=== PATIENT | female | born 1985 | race Caucasian/White ===

== ENCOUNTER 2017-02-11 01:13 | Emergency (ER) | payer SELFPAY ==
--- NOTE | 2017-02-11 07:59 | RAD ---
RIGHT HAND 3 VIEWS: Date: 02/11/17 HISTORY: 32-year-old female with history of injury to her arm and hand 2 weeks ago with splint being placed. Patient has not received follow-up. FINDINGS: There is a displaced and minimally volarly angulated oblique fracture of the fourth metacarpal with some foreshortening. Splint material overlies the ulnar side of the hand and wrist. IMPRESSION: Minimally displaced oblique fracture through the fourth metatarsal with some foreshortening and mini mal volar angulation, stabilized with splint material. No prior radiographs available for comparison . POS: [facility]
== END 2017-02-11 03:37 | disposition left against medical advice (07) ==
LOC: ERS 01:13
DX: M79.641 Pain in right hand (principal); F31.9 Bipolar disorder, unspecified; F17.210 Nicotine dependence, cigarettes, uncomplicated

== ENCOUNTER 2017-03-10 11:01 | Emergency (ER) | payer SELFPAY ==
--- NOTE | 2017-03-10 12:47 | RAD ---
CHEST 1 VIEW: HISTORY: Cough and congestion. FINDINGS: The cardiac silhouette and pulmonary vasculature are unremarkable. Mediastinum is midline. There is no confluent airspace consolidation or evidence of pneumothorax. Metallic clips overlie the gallbla dder fossa. IMPRESSION: No active cardiopulmonary abnormalities are demonstrated. POS: [facility]
[2017-03-10] MEDS ORDERED: Dexamethasone 10 MG/ML VIAL ONE (14:29)
== END 2017-03-10 14:36 | disposition home or self-care (01) ==
LOC: ERS 11:01
DX: J06.9 Acute upper respiratory infection, unspecified (principal); S62.91XD Unspecified fracture of right hand, subsequent encounter for fracture with routine healing; D64.9 Anemia, unspecified; F31.9 Bipolar disorder, unspecified; F17.210 Nicotine dependence, cigarettes, uncomplicated
CPT/HCPCS: 71010; J1100

== ENCOUNTER 2017-05-08 12:18 | Emergency (ER) | payer SELFPAY ==
[2017-05-08 13:07] LABS: #Basophils 0.1 thou/uL (0.0-0.2); #Eosinphils 0.2 thou/uL (0.0-0.7); #Lymphocytes 2.7 thou/uL (1.20-3.40); #Monocytes 0.7 thou/uL (0.11-0.59); #Neutrophils 3.9 thou/uL (1.40-6.50); %Eosinophils 2.2 % (0.0-10.0); %Monocytes 9.8 % (0.0-10.0); %Neutrophils 51.1 % (42.0-75.0); Hemoglobin 13.6 g/dL (12.0-16.0); Mean Corpuscular HGB CONC 33.3 g/dL (32.0-36.0); Mean Corpuscular Hemoglobin 29.2 pg (27.0-31.0); Mean Corpuscular Volume 87.6 fl (81.0-99.0); Platelet Count 292 thou/uL (130-400); RBC Distribution Width 12.8 % (11.5-14.5); Red Blood Cell (RBC) Count 4.67 mill/uL (4.20-5.40); White Blood Cell (WBC) Count 7.5 thou/uL (4.8-10.8)
[2017-05-08] MEDS ORDERED: Ibuprofen 200 MG TAB ONE (13:25)
[2017-05-08 13:33] LABS: ALT (SGPT) 13 U/L (8-55); AST (SGOT) 17 U/L (5-34); Acetaminophen Less than 6.0 mcg/mL (10.0-30.0); Albumin 3.9 g/dL (3.5-5.0); Alcohol Less than 10 mg/dL (Less than 10); Alkaline Phosphatase 52 U/L (40-150); Anion Gap 9 mmol/L (10-20); BUN (Urea Nitrogen) 20 mg/dL (7.0-18.7); Bilirubin, Total 0.3 mg/dL (0.2-1.2); CK (CPK) 71 U/L (29-168); Calc. Creatinine Clearance 0 mL/min (70-130); Calcium 9.5 mg/dL (7.8-10.44); Carbon Dioxide 28 mmol/L (22-29); Chloride 106 mmol/L (98-107); Estimated GFR-MDRD 88; Globulin 2.7 g/dL (2.4-3.5); Glucose 87 mg/dL (70-105); Potassium 4.1 mmol/L (3.5-5.1); Protein, Total 6.6 g/dL (6.0-8.3); Salicylate 15.3 mg/dL (15.0-30.0); Sodium 139 mmol/L (136-145)
[2017-05-08] MEDS ORDERED: Ketorolac Tromethamine 30 MG/ML VIAL ONE (13:55)
[2017-05-08 15:15] LABS: Bilirubin Negative (Negative); Blood, Urine Negative (Negative); Clarity CLEAR (Clear); Glucose, Urine (Dipstick) Negative (Negative); Leukocyte Negative (Negative); Nitrite Negative (Negative); Protein, Urine (Dipstick) Negative (Neg-Trace); Specific Gravity, Urine 1.018 (1.002-1.036); Urobilinogen 0.2 mg/dL (0.2-1.0)
[2017-05-08 15:20] LABS: Pregnancy Test - Urine (BHCG) Negative (Negative); Pregu Control Background? CLEAR/WHITE (CLR/WHITE); Pregu Control Bar Appear? YES (CONTROL BAR); Specific Gravity 1.018 (1.002-1.036)
[2017-05-08 15:26] LABS: Medtox Reader # READER 1
[2017-05-08 15:27] LABS: Amphetamine Detected (NotDetected); Barbiturates Screen Not Detected (NotDetected); Benzodiazepine Screen Not Detected (NotDetected); Cocaine Metabolite Screen Not Detected (NotDetected); Medtox Control Line Valid? VALID (VALID); Methadone Not Detected (NotDetected); Methamphetamine Not Detected (NotDetected); Opiate Screen Not Detected (NotDetected); Oxycodone Screen Not Detected (NotDetected); Phencyclidine (PCP) Detected (NotDetected); THC/Cannabinoid Screen Detected (NotDetected); Tricyclic Screen Not Detected (NotDetected)
[2017-05-08] MEDS ORDERED: cloNIDine 0.1 MG TAB ONE (15:37)
--- NOTE | 2017-05-08 16:04 | RAD ---
RIGHT HAND FOUR VIEWS: 05/08/17 HISTORY: Right hand pain. Injury COMPARISON: 02/11/17. FINDINGS: Fracture plane of the oblique fracture of the fourth metacarpal remains lucent with 0.5 cm gap and on e quarter shaft width posterior displacement. Some periosteal reaction is present, but no complete os seous bridging is reliably demonstrated. Mild apex posterior angulation remains. No new fractures are evident. IMPRESSION: Nonhealing fracture right fourth metacarpal. POS: [facility]
[2017-05-08] MEDS ORDERED: Nicotine 14 MG PATCH TOP SCH (16:30)
[2017-05-09] MEDS ORDERED: Ibuprofen 200 MG TAB ONE (05:00)
[2017-05-09] MEDS ORDERED: Bacitracin Zinc 1 Packet ONE (08:35)
[2017-05-09] MEDS ORDERED: Acetaminophen 325 MG TAB ONE (09:37)
[2017-05-09] MEDS ORDERED: Nicotine 14 MG PATCH TOP SCH (09:45)
[2017-05-09] MEDS ORDERED: Haloperidol Lactate 5 MG/ML VIAL ONE (15:23)
== END 2017-05-09 16:32 | disposition psychiatric hospital, planned readmission (93) ==
LOC: ERS 12:18
DX: F19.10 Other psychoactive substance abuse, uncomplicated (principal); R45.851 Suicidal ideations; D64.9 Anemia, unspecified; F31.9 Bipolar disorder, unspecified; F41.9 Anxiety disorder, unspecified
CPT/HCPCS: 36415; 80053; 80306; 80307; 81003; 81025; 82550; 85025; 96372; 96374; J1630; J1885

== ENCOUNTER 2017-07-20 19:02 | Emergency (ER) | payer SELFPAY ==
[2017-07-20 19:34] LABS: #Eosinphils 0.2 thou/uL (0.0-0.7); #Lymphocytes 1.9 thou/uL (1.20-3.40); #Neutrophils 5.1 thou/uL (1.40-6.50); %Basophils 0.4 % (0.0-1.0); %Eosinophils 2.1 % (0.0-10.0); %Lymphocytes 23.4 % (21.0-51.0); %Monocytes 12.3 % (0.0-10.0); %Neutrophils 61.8 % (42.0-75.0); Hemoglobin 13.6 g/dL (12.0-16.0); Mean Corpuscular HGB CONC 33.7 g/dL (32.0-36.0); Mean Corpuscular Hemoglobin 29.1 pg (27.0-31.0); Mean Corpuscular Volume 86.4 fl (81.0-99.0); Mean Platelet Volume 6.9 fL (7.4-10.4); Platelet Count 332 thou/uL (130-400); RBC Distribution Width 12.7 % (11.5-14.5); Red Blood Cell (RBC) Count 4.66 mill/uL (4.20-5.40); White Blood Cell (WBC) Count 8.3 thou/uL (4.8-10.8)
[2017-07-20 19:59] LABS: CKMB 2.7 ng/mL (0-6.6); Troponin I Less than 0.010 ng/mL (< 0.028)
--- NOTE | 2017-07-20 20:32 | RAD ---
CHEST ONE VIEW: HISTORY: Chest pain. COMPARISON: 03/10/2017 FINDINGS: The cardiac silhouette is magnified by projection. The pulmonary vasculature is unremarkable. The m ediastinum is midline. There is no confluent air space consolidation or evidence of pneumothorax. C ardiac monitor leads overly the chest. IMPRESSION: No acute cardiopulmonary abnormalities are demonstrated. POS: [facility]
[2017-07-20] MEDS ORDERED: hydrOXYzine 25 MG TAB ONE (20:33)
--- NOTE | 2017-08-29 13:59 | EKG ---
Test Reason : Blood Pressure : / mmHG Vent. Rate : 068 BPM Atrial Rate : 068 BPM P-R Int : 146 ms QRS Dur : 086 ms QT Int : 396 ms P-R-T Axes : 039 028 043 degrees QTc Int : 421 ms Normal sinus rhythm Normal ECG Confirmed by TY PETERSON, CATINA ([id number]), food expeditor ADRIA NO ([id number]) on 08/29/2017 1:59:07 PM Referred By: TY Confirmed By:CATINA CRAWFORD MD
== END 2017-07-20 20:38 | disposition home or self-care (01) ==
LOC: ERS 19:02
DX: F41.9 Anxiety disorder, unspecified; L40.9 Psoriasis, unspecified; F31.9 Bipolar disorder, unspecified; F17.210 Nicotine dependence, cigarettes, uncomplicated; D64.9 Anemia, unspecified
CPT/HCPCS: 36415; 71045; 82553; 84484; 85025; 93005

== ENCOUNTER 2017-08-12 10:06 | Emergency (ER) | payer SELFPAY ==
[2017-08-12] MEDS ORDERED: Ondansetron ODT 8 MG TAB ONE (10:38)
[2017-08-12 11:47] LABS: Bilirubin Negative (Negative); Blood, Urine Moderate (Negative); Clarity TURBID (Clear); Glucose, Urine (Dipstick) Negative (Negative); Leukocyte Large (Negative); Nitrite Positive (Negative); Protein, Urine (Dipstick) 100 mg/dL (Neg-Trace); Specific Gravity, Urine 1.014 (1.002-1.036); pH, Urine 6.5 (5.0-9.0)
[2017-08-12 11:54] LABS: Pregnancy Test - Urine (BHCG) Negative (Negative); Pregu Control Background? CLEAR/WHITE (CLR/WHITE); Pregu Control Bar Appear? YES (CONTROL BAR); Specific Gravity 1.014 (1.002-1.036)
[2017-08-12 11:59] LABS: Bacteria/HPF 4+ HPF (None Seen); Hyaline Casts/LPF 0-3 HYALINE CAST LPF (0-3 Hyaline); Pathc Cast-AUWi Flag 0.59 (0-2.49); Squamous Epithelial None Seen HPF (0-3)
[2017-08-12 12:00] LABS: Yeast-AUWi Flag 74.7 (0-25.0)
[2017-08-12] MEDS ORDERED: Ketorolac Tromethamine 60 MG/2 ML VIAL ONE (12:04)
[2017-08-12 12:15] LABS: Yeast-All Forms None Seen HPF (None Seen)
[2017-08-12] MEDS ORDERED: cefTRIAXone\\ROCEPHIN 500 MG VIAL ONE (13:12)
[2017-08-12] MEDS ORDERED: Lidocaine 1% PF 5 ML VIAL ONE (13:12)
== END 2017-08-12 13:43 | disposition home or self-care (01) ==
LOC: ERS 10:06
DX: N12 Tubulo-interstitial nephritis, not specified as acute or chronic (principal); F31.9 Bipolar disorder, unspecified; D64.9 Anemia, unspecified; F41.9 Anxiety disorder, unspecified; F17.210 Nicotine dependence, cigarettes, uncomplicated
CPT/HCPCS: 81003; 81015; 81025; 96372; J0696; J1885; J2001

== ENCOUNTER 2018-01-04 12:08 | Emergency (ER) | payer MEDICARE, MEDICAID ==
--- NOTE | 2018-01-04 14:13 | RAD ---
FOUR VIEWS LEFT ELBOW: COMPARISON: None. HISTORY: Left elbow pain. FINDINGS: Four views of the left elbow show no evidence of acute fracture or dislocation. No elbow effusion is seen. No degenerative changes are seen. IMPRESSION: No evidence of acute osseous abnormality. POS: [facility]
[2018-01-04] MEDS ORDERED: Acetaminophen 500 MG TAB ONE (14:37)
== END 2018-01-04 14:40 | disposition home or self-care (01) ==
LOC: ERS 12:08
DX: S56.912A Strain of unspecified muscles, fascia and tendons at forearm level, left arm, initial encounter (principal); Z71.6 Tobacco abuse counseling; D64.9 Anemia, unspecified; F31.9 Bipolar disorder, unspecified; F41.9 Anxiety disorder, unspecified; F17.210 Nicotine dependence, cigarettes, uncomplicated; X50.0XXA Overexertion from strenuous movement or load, initial encounter
CPT/HCPCS: 99406

== ENCOUNTER 2019-12-07 12:41 | Emergency (ER) | payer MEDICAID, OTHER ==
[2019-12-07] MEDS ORDERED: Acetaminophen 500 MG TAB ONE (13:13)
[2019-12-07 13:25] LABS: #Eosinphils 0.1 thou/uL (0.0-0.7); #Lymphocytes 1.6 thou/uL (1.20-3.40); #Monocytes 0.7 thou/uL (0.11-0.59); #Neutrophils 4.3 thou/uL (1.40-6.50); %Basophils 0.7 % (0.0-1.0); %Lymphocytes 23.4 % (21.0-51.0); %Monocytes 9.9 % (0.0-10.0); Hemoglobin 13.4 g/dL (12.0-16.0); Mean Corpuscular HGB CONC 32.6 g/dL (32.0-36.0); Mean Corpuscular Hemoglobin 27.9 pg (27.0-31.0); Mean Corpuscular Volume 85.5 fL (78.0-98.0); Mean Platelet Volume 8.6 fL (7.4-10.4); Platelet Count 255 thou/uL (130-400); RBC Distribution Width 12.8 % (11.5-14.5); Red Blood Cell (RBC) Count 4.81 mill/uL (4.20-5.40); White Blood Cell (WBC) Count 6.6 thou/uL (4.8-10.8)
[2019-12-07 13:47] LABS: ALT (SGPT) 11 U/L (8-55); AST (SGOT) 14 U/L (5-34); Albumin 3.9 g/dL (3.5-5.0); Alkaline Phosphatase 54 U/L (40-110); Anion Gap 12 mmol/L (10-20); BUN (Urea Nitrogen) 9 mg/dL (7.0-18.7); Bilirubin, Total 0.7 mg/dL (0.2-1.2); Calc. Creatinine Clearance 0 mL/min (70-130); Calcium 8.5 mg/dL (7.8-10.44); Carbon Dioxide 23 mmol/L (22-29); Chloride 105 mmol/L (98-107); Estimated GFR-MDRD 85; Globulin 2.4 g/dL (2.4-3.5); Glucose 87 mg/dL (70-105); Lipase 18 U/L (8-78); Potassium 3.5 mmol/L (3.5-5.1); Protein, Total 6.3 g/dL (6.0-8.3); Sodium 136 mmol/L (136-145)
--- NOTE | 2019-12-07 13:56 | RAD ---
XR Chest 1 View Portable HISTORY: Chest pain COMPARISON: 12/01/2017 FINDINGS: The heart size is normal. The lungs are well expanded without focal areas of consolidation, pneumothorax or pleural effusions. IMPRESSION: No radiographic evidence of acute cardiopulmonary process.
[2019-12-07 14:17] LABS: Bacteria/HPF None Seen HPF (None Seen); Bilirubin Negative (Negative); Blood, Urine 2+ (Negative); Clarity Clear (Clear); Glucose, Urine (Dipstick) Normal (Negative); Ketone, Urine 20 mg/dL (Negative); Leukocyte Negative Leu/uL (Negative); Mucous/LPF 1+ LPF (<2+); Nitrite Negative (Negative); Protein, Urine (Dipstick) 20 mg/dL (Neg-Trace); Specific Gravity, Urine 1.026 (1.002-1.036); WBC/HPF 0-3 HPF (0-3)
[2019-12-07 14:21] LABS: Pregnancy Test - Urine (BHCG) Negative (Negative); Pregu Control Background? CLEAR/WHITE (CLR/WHITE); Pregu Control Bar Appear? YES (CONTROL BAR); Specific Gravity 1.026 (1.002-1.036)
[2019-12-08 12:29] LABS: SARS-CoV-2 MS2 Positive; SARS-CoV-2 N Gene Negative; SARS-CoV-2 S Gene Negative; SARS-CoV-2 by NAA Not Detected (NotDetected); SARS-CoV-2 orf1ab Negative
== END 2019-12-07 15:05 | disposition home or self-care (01) ==
LOC: ERS 12:41
DX: R11.2 Nausea with vomiting, unspecified (principal); R42 Dizziness and giddiness; M54.5 Low back pain; M79.10 Myalgia, unspecified site; R53.1 Weakness; R51 Headache; R07.9 Chest pain, unspecified; I10 Essential (primary) hypertension; D64.9 Anemia, unspecified; F41.9 Anxiety disorder, unspecified; F31.9 Bipolar disorder, unspecified; F17.210 Nicotine dependence, cigarettes, uncomplicated; Z20.828 Contact with and (suspected) exposure to other viral communicable diseases
CPT/HCPCS: 36415; 71045; 80053; 81003; 81015; 81025; 83690; 84484; 85025; 87635; 93005; U0003

== ENCOUNTER 2020-01-20 22:43 | Emergency (ER) | payer MEDICAID, SELFPAY ==
[2020-01-20] MEDS ORDERED: predniSONE 20 MG TAB ONE (23:50)
== END 2020-01-20 23:55 | disposition home or self-care (01) ==
LOC: ERS 22:43
DX: J44.1 Chronic obstructive pulmonary disease with (acute) exacerbation (principal); J04.0 Acute laryngitis; F31.9 Bipolar disorder, unspecified; F17.210 Nicotine dependence, cigarettes, uncomplicated; Z85.41 Personal history of malignant neoplasm of cervix uteri
CPT/HCPCS: 99284; J7512

== ENCOUNTER 2020-04-12 19:44 | Emergency (ER) | payer SELFPAY ==
[2020-04-12] MEDS ORDERED: PROVENTIL INHALER 6.7 G (200 INHALATIONS) ONE (21:53)
[2020-04-12] MEDS ORDERED: Albuterol 200 PUFF (6.7GM INHALER) ONE (21:57)
--- NOTE | 2020-04-12 22:44 | RAD ---
PORTABLE CHEST: 04/12/20 PROVIDED CLINICAL HISTORY: Cough. FINDINGS: Comparison 12/07/19. The cardiac and mediastinal silhouette is unchanged in appearance. No focal consolidation, pleural fl uid or pneumothorax apparent. IMPRESSION: No evidence for an acute cardiopulmonary process. POS: [facility]
[2020-04-13 03:15] LABS: SARS-CoV-2 MS2 Positive; SARS-CoV-2 N Gene Negative; SARS-CoV-2 S Gene Negative; SARS-CoV-2 by NAA Not Detected (NotDetected); SARS-CoV-2 orf1ab Negative
== END 2020-04-12 22:02 | disposition home or self-care (01) ==
LOC: ERS 19:44
DX: R05 Cough (principal); J44.9 Chronic obstructive pulmonary disease, unspecified; F17.210 Nicotine dependence, cigarettes, uncomplicated; Z20.828 Contact with and (suspected) exposure to other viral communicable diseases
CPT/HCPCS: 71045; 87635; U0003

== ENCOUNTER 2020-07-02 03:50 | Emergency (ER) | payer OTHER, SELFPAY | END 2020-07-02 05:15 | disposition home or self-care (01) | LOC: ERS 03:50 | DX: J45.901 Unspecified asthma with (acute) exacerbation (principal); F17.210 Nicotine dependence, cigarettes, uncomplicated | CPT/HCPCS: 71045 ==

== ENCOUNTER 2021-09-10 20:02 | Emergency (ER) | payer SELFPAY ==
[2021-09-10] MEDS ORDERED: predniSONE 20 MG TAB ONE (20:52)
[2021-09-10 21:14] LABS: #Lymphocytes 0.9 thou/uL (1.20-3.40); #Monocytes 0.5 thou/uL (0.11-0.59); %Eosinophils 0.5 % (0.0-10.0); %Lymphocytes 26.1 % (21.0-51.0); %Monocytes 13.3 % (0.0-10.0); %Neutrophils 59.1 % (42.0-75.0); Hemoglobin 12.6 g/dL (12.0-16.0); Mean Corpuscular HGB CONC 32.9 g/dL (32.0-36.0); Mean Corpuscular Hemoglobin 28.2 pg (27.0-31.0); Mean Corpuscular Volume 85.9 fL (78.0-98.0); Mean Platelet Volume 8.4 fL (7.4-10.4); Platelet Count 180 thou/uL (130-400); RBC Distribution Width 14.7 % (11.5-14.5); Red Blood Cell (RBC) Count 4.48 mill/uL (4.20-5.40); White Blood Cell (WBC) Count 3.4 thou/uL (4.8-10.8)
[2021-09-10 21:38] LABS: ALT (SGPT) 11 U/L (8-55); AST (SGOT) 17 U/L (5-34); Albumin 3.7 g/dL (3.5-5.0); Alkaline Phosphatase 49 U/L (40-110); Anion Gap 12 mmol/L (10-20); BUN (Urea Nitrogen) 6 mg/dL (7.0-18.7); Bilirubin, Total 0.2 mg/dL (0.2-1.2); Calc. Creatinine Clearance 0 mL/min (70-130); Calcium 8.4 mg/dL (7.8-10.44); Carbon Dioxide 22 mmol/L (22-29); Chloride 106 mmol/L (98-107); Globulin 2.7 g/dL (2.4-3.5); Glucose 79 mg/dL (70-105); Potassium 3.5 mmol/L (3.5-5.1); Protein, Total 6.4 g/dL (6.0-8.3); Sodium 136 mmol/L (136-145)
== END 2021-09-10 22:06 | disposition home or self-care (01) ==
LOC: ERS 20:02
DX: J44.1 Chronic obstructive pulmonary disease with (acute) exacerbation (principal); F17.210 Nicotine dependence, cigarettes, uncomplicated
CPT/HCPCS: 36415; 71045; 80053; 84484; 85025; 93005; J7512; J7620

== ENCOUNTER 2022-11-25 05:04 | Emergency (ER) | payer SELFPAY ==
[2022-11-25] MEDS ORDERED: Ketorolac Tromethamine 30 MG/ML VIAL ONE (05:31)
[2022-11-25] MEDS ORDERED: CEFAZOLIN 2 GM VIAL ONE (05:31)
[2022-11-25] MEDS ORDERED: Lidocaine 1% w/Epinephrine 1:100K 20 ML VIAL ONE (05:37)
[2022-11-25] MEDS ORDERED: Bacitracin 1 PK ONE (06:23)
[2022-11-25] MEDS ORDERED: Acetaminophen 500 MG TAB ONE ×2 (07:47)
== END 2022-11-25 08:32 | disposition home or self-care (01) ==
LOC: ERS 05:04
DX: S63.277A Dislocation of unspecified interphalangeal joint of left little finger, initial encounter (principal); S81.012A Laceration without foreign body, left knee, initial encounter; S00.31XA Abrasion of nose, initial encounter; J45.909 Unspecified asthma, uncomplicated; F17.210 Nicotine dependence, cigarettes, uncomplicated; Y04.8XXA Assault by other bodily force, initial encounter
CPT/HCPCS: 12002; 26770; 71045; 96365; 96375; J1885

== ENCOUNTER 2023-06-15 01:22 | Emergency (ER) | payer BC, OTHER ==
[2023-06-15 03:16] LABS: #Basophils 0.1 thou/uL (0.0-0.2); #Eosinphils 0.1 thou/uL (0.0-0.7); #Monocytes 0.8 thou/uL (0.11-0.59); #Neutrophils 4.3 thou/uL (1.40-6.50); %Basophils 0.7 % (0.0-1.0); %Eosinophils 1.3 % (0.0-10.0); %Lymphocytes 35.8 % (21.0-51.0); %Monocytes 9.3 % (0.0-10.0); %Neutrophils 52.4 % (42.0-75.0); Hematocrit 38.9 % (36.0-47.0); Mean Corpuscular HGB CONC 33.4 g/dL (32.0-36.0); Mean Corpuscular Hemoglobin 29.7 pg (27.0-31.0); Mean Corpuscular Volume 88.8 fl (78.0-98.0); Mean Platelet Volume 10.9 fL (7.4-10.4); Platelet Count 232 10x3/uL (130-400); Red Blood Cell (RBC) Count 4.38 mill/uL (4.20-5.40); White Blood Cell (WBC) Count 8.2 10x3/uL (4.8-10.8)
[2023-06-15 03:23] LABS: BHCG - Serum Negative (NEGATIVE); Pregs Control Background? CLEAR/WHITE (CLR/WHITE); Pregs Control Bar Appear? YES (CONTROL BAR)
[2023-06-15 03:39] LABS: ALT (SGPT) 43 U/L (8-55); AST (SGOT) 32 U/L (5-34); Albumin 4.2 g/dL (3.5-5.0); Alkaline Phosphatase 58 U/L (40-110); BUN (Urea Nitrogen) 16 mg/dL (7.0-18.7); Bilirubin, Total 0.4 mg/dL (0.2-1.2); Calc. Creatinine Clearance 0 mL/min (70-130); Calcium 10.1 mg/dL (7.8-10.44); Carbon Dioxide 22 mmol/L (22-29); Estimated GFR 102; Globulin 2.8 g/dL (2.4-3.5); Glucose 92 mg/dL (70-105); Lipase 30 U/L (8-78)
[2023-06-15 03:49] LABS: Troponin I Less than 0.010 ng/mL (< 0.028)
[2023-06-15 04:38] LABS: Chloride 107 mmol/L (98-107); Potassium 4.5 mmol/L (3.5-5.1); Sodium 139 mmol/L (136-145)
[2023-06-15 04:41] LABS: Anion Gap 17 mmol/L (10-20)
== END 2023-06-15 05:22 ==
LOC: ERS 01:22
DX: R07.89 Other chest pain (principal); Z87.891 Personal history of nicotine dependence
CPT/HCPCS: 36415; 71045; 80053; 83690; 84484; 84703; 85025; 93005